=== PATIENT | male | born 1975 | race Caucasian/White ===

== ENCOUNTER 2022-03-26 15:41 | Emergency (ER) | payer SELFPAY ==
[~2022-03-26] VITALS: Ht 182.8 cm; Wt 81.6 kg
[2022-03-26] MEDS ORDERED: KETOROLAC 30 MG/ML VIAL IVP STA (15:46)
--- NOTE | 2022-03-26 15:46 | ED General ---
General Stated Complaint: LT FLANK PAIN History of Present Illness Date Seen by Provider: Mar 26, 2022 Time Seen by Provider: 15:42 Initial Comments 46-year-old male presents with left flank pain. Patient was brought in by EMS due to significant pain and diaphoresis. Patient pain radiates around to the left abdomen. Gets worse if he moves, feels as if he bends over and stands up he gets a little bit dizzy. Patient received 100 of fentanyl in route by EMS along with 1 L of IV fluids. He denies any nausea, vomiting, fever, chills, urinary symptoms. Allergies and Home Medications Allergies Coded Allergies: No Known Drug Allergies (Unverified , 03/26/22) Patient Home Medication List Home Medication List Reviewed: Yes Review of Systems Review of Systems Constitutional: No chills, No fever Respiratory: No cough, No short of breath Cardiovascular: No chest pain, No palpitations Gastrointestinal: see HPI, abdominal pain; No nausea, No vomiting Genitourinary: see HPI Musculoskeletal: see HPI, back pain Skin: no symptoms reported Psychiatric/Neurological: No Symptoms Reported Physical Exam Vital Signs Vital Signs - First Documented 03/26/22 15:41 Temp 36.9 Pulse 64 Resp 13 B/P (MAP) 127/79 (95) Pulse Ox 96 O2 Delivery Room Air Capillary Refill : Height, Weight, BMI Height: '" Weight: lbs. oz. kg; BMI Method: General Appearance: No Apparent Distress, WD/WN Neck: Non Tender, Supple Respiratory: Lungs Clear, Normal Breath Sounds Cardiovascular: Regular Rate, Rhythm, No Gallop Gastrointestinal: Non Tender, Soft Back: CVA Tenderness (L) Extremity: Normal Inspection, Other (Tenderness left flank) Neurologic/Psychiatric: Alert, Oriented x3, No Motor/Sensory Deficits, Normal Mood/Affect, chocolate dipper II-XII Norm as Tested Progress/Results/Core Measures Suspected Sepsis SIRS Temperature: Pulse: Respiratory Rate: Laboratory Tests 03/26/22 15:45: White Blood Count 7.6 Blood Pressure / Mean: Laboratory Tests 03/26/22 15:45: Creatinine 1.17, Platelet Count 241, Total Bilirubin 1.1H Results/Orders Lab Results Laboratory Tests Test 03/26/22 15:45 03/26/22 15:55 Range/Units White Blood Count 7.6 4.3-11.0 10^3/uL Red Blood Count 4.72 4.30-5.52 10^6/uL Hemoglobin 14.0 13.3-17.7 g/dL Hematocrit 40 40-54 % Mean Corpuscular Volume 85 80-99 fL Mean Corpuscular Hemoglobin 30 25-34 pg Mean Corpuscular Hemoglobin Concent 35 32-36 g/dL Red Cell Distribution Width 11.9 10.0-14.5 % Platelet Count 241 130-400 10^3/uL Mean Platelet Volume 10.1 9.0-12.2 fL Immature Granulocyte % (Auto) 0 % Neutrophils (%) (Auto) 67 42-75 % Lymphocytes (%) (Auto) 19 12-44 % Monocytes (%) (Auto) 9 0-12 % Eosinophils (%) (Auto) 3 0-10 % Basophils (%) (Auto) 1 0-10 % Neutrophils # (Auto) 5.1 1.8-7.8 10^3/uL Lymphocytes # (Auto) 1.4 1.0-4.0 10^3/uL Monocytes # (Auto) 0.7 0.0-1.0 10^3/uL Eosinophils # (Auto) 0.2 0.0-0.3 10^3/uL Basophils # (Auto) 0.1 0.0-0.1 10^3/uL Immature Granulocyte # (Auto) 0.0 0.0-0.1 10^3/uL Sodium Level 142 135-145 MMOL/L Potassium Level 3.4 L 3.6-5.0 MMOL/L Chloride Level 107 98-107 MMOL/L Carbon Dioxide Level 23 21-32 MMOL/L Anion Gap 12 5-14 MMOL/L Blood Urea Nitrogen 16 7-18 MG/DL Creatinine 1.17 0.60-1.30 MG/DL Estimat Glomerular Filtration Rate 77 BUN/Creatinine Ratio 14 Glucose Level 93 70-105 MG/DL Calcium Level 8.5 8.5-10.1 MG/DL Corrected Calcium 8.5 8.5-10.1 MG/DL Total Bilirubin 1.1 H 0.1-1.0 MG/DL Aspartate Amino Transf (AST/SGOT) 14 5-34 U/L Alanine Aminotransferase (ALT/SGPT) 16 0-55 U/L Alkaline Phosphatase 97 40-136 U/L C-Reactive Protein < 0.30 <0.50 MG/DL Total Protein 6.4 6.4-8.2 GM/DL Albumin 4.0 3.2-4.5 GM/DL Urine Color DARK YELLOW Urine Clarity CLEAR Urine pH 6.0 5-9 Urine Specific [place] 1.020 1.016-1.022 Urine Protein TRACE H NEGATIVE Urine Glucose (UA) TRACE H NEGATIVE Urine Ketones 1+ H NEGATIVE Urine Nitrite NEGATIVE NEGATIVE Urine Bilirubin 2+ H NEGATIVE Urine Urobilinogen 4.0 < = 1.0 MG/DL Urine Leukocyte Esterase NEGATIVE NEGATIVE Urine RBC (Auto) NEGATIVE NEGATIVE Urine RBC NONE /HPF Urine WBC 5-10 H /HPF Urine Squamous Epithelial Cells NONE /HPF Urine Crystals NONE /LPF Urine Bacteria FEW H /HPF Urine Casts NONE /LPF Urine Mucus LARGE H /LPF Urine Culture Indicated YES My Orders Orders - MAI,JIMENEZ L DO Cbc With Automated Diff (03/26/22 15:46) Comprehensive Metabolic Panel (03/26/22 15:46) Ua Culture If Indicated (03/26/22 15:46) Crp Fs (03/26/22 15:46) Ct Abdomen/Pelvis Wo (03/26/22 15:46) Ketorolac Injection (Toradol Injection) (03/26/22 15:46) Urine Culture (03/26/22 15:55) Vital Signs/I&O 03/26/22 15:41 Temp 36.9 Pulse 64 Resp 13 B/P (MAP) 127/79 (95) Pulse Ox 96 O2 Delivery Room Air Capillary Refill : Progress Note : Progress Note Patient's urinalysis is concerning for potential urinary tract infection. Patient have a negative CT. Patient symptoms get worse with movement as I suspect he is probably has a musculoskeletal issue causing his back pain likely a pulled muscle or overuse injury. We will start him on muscle relaxant, naproxen and an antibiotic for the urinary tract infection. He should follow-up next week with his primary care provider. Patient was stable and discharged home Diagnostic Imaging Diagonstic Imaging: CT Plain Films/CT/US/NM/MRI: abdomen, pelvis Comments Date of Exam:03/26/22 CT ABDOMEN/PELVIS WO PROCEDURE: CT abdomen and pelvis without contrast. TECHNIQUE: Multiple contiguous axial images were obtained through the abdomen and pelvis without the use of intravenous contrast. Auto Exposure Controls were utilized during the CT exam to meet ALARA standards for radiation dose reduction. INDICATION: 46-year-old male, left flank pain. CORRELATION STUDY: None. FINDINGS: LOWER THORAX: Clear. LIVER: Unremarkable on unenhanced imaging. GALLBLADDER: Mildly distended, otherwise unremarkable. SPLEEN: Unremarkable. PANCREAS: Unremarkable. ADRENAL GLANDS: Unremarkable. KIDNEYS: 15 mm low-density foci in right kidney favors probable cyst but incompletely characterized. Kidneys demonstrate no calcification. No ureteric calcification or obstructive uropathy. ABDOMINAL AORTA: Normal in contour. A few shotty aortocaval lymph nodes are present. There is very slight haziness in the periaortic retroperitoneal fat. GASTROINTESTINAL TRACT: Stomach is distended with gastric contents, perhaps recent meal ingestion. Small bowel unremarkable. There is mild stool through the colon. Normal appendix. No abdominal ascites and/or free air. URINARY BLADDER: Decompressed. REPRODUCTIVE: Unremarkable. OSSEOUS STRUCTURES: No acute abnormality. OTHER: None. IMPRESSION: Negative for acute abnormality of the abdomen or pelvis. No evidence for nephroureterolithiasis or obstructive uropathy. Departure Impression Primary Impression: Thoracic back sprain Qualified Codes: S23.9XXA - Sprain of unspecified parts of thorax, initial encounter Additional Impression: Acute cystitis without hematuria Disposition: HOME, SELF-CARE Condition: Stable Departure-Patient Inst. Patient Instructions: Muscle Strain (DC), Acute Cystitis (DC) Add. Discharge Instructions: Drink plenty of fluid You may use 4% topical lidocaine with menthol to your flank region to help with pain and cream gel or patch form. Use as directed on pack Voltaren/diclofenac cream or gel on flank region as needed for pain, use as directed on pack Drink plenty of fluids, follow-up with your primary care provider in 1 week to recheck your symptoms Scripts Nitrofurantoin Macrocrystal (Nitrofurantoin) 100 Mg Capsule 100 MG PO BID, #14 CAP 0 Refills Prov: JHONATHAN MAIVOR L DO 03/26/22 Naproxen (Naprosyn) 500 Mg Tablet 500 MG PO BID, #30 TAB 0 Refills Prov: JHONATHAN MAIVOR L DO 03/26/22 Cyclobenzaprine HCl (Cyclobenzaprine HCl) 10 Mg Tablet 10 MG PO Q8H PRN for SPASMS, #15 TAB 0 Refills Prov: MAIJIMENEZ L DO 03/26/22 XENIA MAIR L DO Mar 26, 2022 15:46
[2022-03-26 15:51] LABS: BASOPHILS # (AUTO) 0.1 10^3/uL (0.0-0.1); BASOPHILS % (AUTO) 1 % (0-10); EOSINOPHILS # (AUTO) 0.2 10^3/uL (0.0-0.3); EOSINOPHILS % (AUTO) 3 % (0-10); HEMATOCRIT 40 % (40-54); LYMPHOCYTES # (AUTO) 1.4 10^3/uL (1.0-4.0); LYMPHOCYTES % (AUTO) 19 % (12-44); MEAN CORPUSCULAR HEMOGLOBIN 30 pg (25-34); MEAN CORPUSCULAR HGB CONC 35 g/dL (32-36); MEAN CORPUSCULAR VOLUME 85 fL (80-99); MEAN PLATELET VOLUME 10.1 fL (9.0-12.2); MONOCYTES # (AUTO) 0.7 10^3/uL (0.0-1.0); MONOCYTES % (AUTO) 9 % (0-12); NEUTROPHILS # (AUTO) 5.1 10^3/uL (1.8-7.8); NEUTROPHILS % (AUTO) 67 % (42-75); PLATELET COUNT 241 10^3/uL (130-400); WHITE BLOOD COUNT 7.6 10^3/uL (4.3-11.0)
[2022-03-26 16:02] LABS: CLARITY,URINE CLEAR; GLUCOSE, URINE (UA) TRACE (NEGATIVE); KETONES,URINE 1+ (NEGATIVE); LEUKOCYTE ESTERASE ,URINE NEGATIVE (NEGATIVE); NITRITE,URINE NEGATIVE (NEGATIVE); PROTEIN,URINE TRACE (NEGATIVE)
[2022-03-26 16:06] LABS: BACTERIA,URINE FEW /HPF; BILIRUBIN,URINE 2+ (NEGATIVE); COLOR,URINE DARK YELLOW
[2022-03-26 16:10] LABS: BUN/CREATININE RATIO 14; CARBON DIOXIDE 23 MMOL/L (21-32); CHLORIDE 107 MMOL/L (98-107); CREATININE SERUM 1.17 MG/DL (0.60-1.30); GFR ESTIMATED 77; GLUCOSE 93 MG/DL (70-105); POTASSIUM 3.4 MMOL/L (3.6-5.0); SODIUM 142 MMOL/L (135-145)
[2022-03-26 16:11] LABS: ALANINE AMINOTRANSFERASE 16 U/L (0-55); ALKALINE PHOSPHATASE 97 U/L (40-136); BILIRUBIN,TOTAL 1.1 MG/DL (0.1-1.0); CALCIUM 8.5 MG/DL (8.5-10.1); TOTAL PROTEIN 6.4 GM/DL (6.4-8.2)
--- NOTE | 2022-03-26 16:27 | Diagnostic Imaging Report ---
PROCEDURE: CT abdomen and pelvis without contrast. TECHNIQUE: Multiple contiguous axial images were obtained through the abdomen and pelvis without the use of intravenous contrast. Auto Exposure Controls were utilized during the CT exam to meet ALARA standards for radiation dose reduction. INDICATION: 46-year-old male, left flank pain. CORRELATION STUDY: None. FINDINGS: LOWER THORAX: Clear. LIVER: Unremarkable on unenhanced imaging. GALLBLADDER: Mildly distended, otherwise unremarkable. SPLEEN: Unremarkable. PANCREAS: Unremarkable. ADRENAL GLANDS: Unremarkable. KIDNEYS: 15 mm low-density foci in right kidney favors probable cyst but incompletely characterized. Kidneys demonstrate no calcification. No ureteric calcification or obstructive uropathy. ABDOMINAL AORTA: Normal in contour. A few shotty aortocaval lymph nodes are present. There is very slight haziness in the periaortic retroperitoneal fat. GASTROINTESTINAL TRACT: Stomach is distended with gastric contents, perhaps recent meal ingestion. Small bowel unremarkable. There is mild stool through the colon. Normal appendix. No abdominal ascites and/or free air. URINARY BLADDER: Decompressed. REPRODUCTIVE: Unremarkable. OSSEOUS STRUCTURES: No acute abnormality. OTHER: None. IMPRESSION: Negative for acute abnormality of the abdomen or pelvis. No evidence for nephroureterolithiasis or obstructive uropathy. Dictated by: Dictated on workstation # [id number]
[2022-03-26] MEDS ORDERED: NAPR-1071 PO (16:37)
[2022-03-26] MEDS ORDERED: NITR100C PO (16:37)
[2022-03-26] MEDS ORDERED: CYCL10TA25 PO (16:37)
[2022-03-26 16:45] VITALS: BP 127/79
== END 2022-03-26 16:41 | disposition home or self-care (01) ==
LOC: ER FS 15:42
DX: S23.3XXA Sprain of ligaments of thoracic spine, initial encounter (principal); N30.00 Acute cystitis without hematuria; X58.XXXA Exposure to other specified factors, initial encounter
CPT/HCPCS: 36415; 74176; 80053; 81000; 85025; 86141; 87088